=== PATIENT | female | born 1950 | race Caucasian/White ===

== ENCOUNTER 2017-12-22 09:15 | Day surgery (SDC) | payer OTHER ==
[~2017-12-22 09:15] MED LIST: Citalopram HBr20 MG PO; HYDCHL25 PO; LEVSOD100 PO; SIMV10 PO
== END 2017-12-22 22:54 | disposition home or self-care (01) ==
LOC: MOI US 09:15 → MOI MAM 09:30 → MOI US 22:54 → MOI MAM 12-24 07:45 → MOI US 12-24 07:45
PROC: BH01ZZZ Plain Radiography of Left Breast (ICD-10-PCS; principal; 2017-12-22)
DX: C50.312 Malignant neoplasm of lower-inner quadrant of left female breast (principal); I10 Essential (primary) hypertension
CPT/HCPCS: 19285; 77065

== ENCOUNTER 2017-12-28 08:12 | Day surgery (SDC) | payer OTHER ==
[~2017-12-28] VITALS: Ht 167.6 cm; Wt 77.1 kg
== END 2017-12-28 22:46 | disposition home or self-care (01) ==
LOC: ORSCMMR 08:12 → NM 08:12 → ORSCMMR 08:14 → NM 09:00 → ORSCMMR 22:46
PROVIDERS: Surgery
PROC: 07B60ZX Excision of Left Axillary Lymphatic, Open Approach, Diagnostic (ICD-10-PCS; principal; 2017-12-28 11:00)
PROC: 0HBU0ZZ Excision of Left Breast, Open Approach (ICD-10-PCS; principal; 2017-12-28 11:00)
DX: C50.312 Malignant neoplasm of lower-inner quadrant of left female breast (principal); D36.0 Benign neoplasm of lymph nodes; I10 Essential (primary) hypertension; E03.9 Hypothyroidism, unspecified; Z79.899 Other long term (current) drug therapy
CPT/HCPCS: 38792; 76098; A9520; J0690; J1100; J2250; J2405; J2765; J3010; J7120; Q9968